=== PATIENT | female | born 1965 | race African-American/Black ===

== ENCOUNTER 2024-04-04 10:24 | Emergency (ER) | payer SELFPAY ==
[2024-04-04 10:26] VITALS: BP 181/121; PULSE 113; RESP 24; TEMP 36.7; O2SAT 99
--- NOTE | 2024-04-04 10:37 | ED.GENADUL_ITS ---
Discharge Plan Disposition Patient Disposition: Home Condition: Stable Discharge Details Clinical Impression: Cervical radiculopathy Primary Care Provider: [facility]Local ED Provider: Gibran Lindsay Home Meds and New Rx's Prescriptions: New ketorolac 10 mg tablet 10 mg PO QID PRN (Reason: pain) 5 Days Qty: 20 0RF Rx Instructions: maximum total duration of 5 days from all oral, intranasal, or parenteral formulations cyclobenzaprine 10 mg tablet 10 mg PO TID PRN (Reason: neck spasm) Qty: 30 0RF lidocaine [Lidoderm] 5 % adhesive patch,medicated 1 patch topical DAILY Qty: 15 0RF Rx Instructions: leave on most painful area for up to 12 hrs prednisone 20 mg tablet 40 mg PO DAILY 6 Days Qty: 12 0RF Discharge Instructions Instructions: Cervical Radiculopathy (ED) HPI General Date/Time Provider Initiated Documentation: 04/04/24 10:36 . HPI Narrative: 58 year-old female presents to ED today by POV/ambulating with her friend with a chief complaint of decreased strength and ROM in R arm, diminished sensation, R lateral neck pain with onset for approximately 3 months. Quality described as soreness to shoulder/lateral neck, tingling and intermittent numbness to R arm, no radiation to visual changes, pain out of proportion, L UE symptoms, lower extremity symptoms, endorses difficulty raising her R arm past 40 degrees. Severity is described as 6-7/10. Palliating factors include nothing specific. Provoking factors include nothing specific. Patient not anticoagulated. Related Data Home Medications Medication Instructions Recorded Confirmed cyclobenzaprine 10 mg tablet 10 mg PO TID PRN neck spasm #30 04/04/24 tabs ketorolac 10 mg tablet 10 mg PO QID PRN pain 5 days #20 04/04/24 tabs lidocaine 5 % topical patch 1 patch topical DAILY #15 ea 04/04/24 (Lidoderm) prednisone 20 mg tablet 40 mg (2 x 20 mg) PO DAILY 04/04/24 cervical radiculopathy 6 days #12 tabs Previous Rx's Medication Instructions Recorded cyclobenzaprine 10 mg tablet 10 mg PO TID PRN neck spasm #30 04/04/24 tabs ketorolac 10 mg tablet 10 mg PO QID PRN pain 5 days #20 04/04/24 tabs lidocaine 5 % topical patch 1 patch topical DAILY #15 ea 04/04/24 (Lidoderm) prednisone 20 mg tablet 40 mg (2 x 20 mg) PO DAILY 04/04/24 cervical radiculopathy 6 days #12 tabs Allergies Allergy/AdvReac Type Severity Reaction Status Date / Time No Known Allergies Allergy Unverified 04/04/24 10:31 General Stated Complaint: Orthopedic MIGUEL: 4 Review of Systems All systems reviewed & are unremarkable except as noted in HPI and below Exam Narrative Exam Narrative: GENERAL APPEARANCE: Well-nourished, non-toxic, awake and alert, atraumatic, no acute distress. SKIN: Warm, normal for ethincity, dry, intact, without rashes/lesions/ulcerations. HEAD: Normocephalic, atraumatic, normal hair distribution for gender/age. EYES: Normal conjunctiva, no exudates on lids/lashes. ENT: Nares patent, no circumoral cyanosis, no facial swelling NECK: Supple, trachea midline, painless cervical ROM. LUNGS/CHEST: Non-labored respirations, normal A/P diameter, symmetrical expansion, no chest wall deformity HEART (CV/PV): Regular rate, R radial pulse 2+, no peripheral edema, no JVD. ABDOMEN: Soft, non-distended, no guarding. MSK: Normal ROM, no swelling/deformity to bilateral UEs or LEs, moving all extremities without weakness, no cyanosis, spine midline without tenderness, normal curvature. R UE: Limited range of motion to the entire right upper extremity, is able to perform very limited elbow flexion and extension, wrist flexion and extension is less affected, right radial pulse 2+, sensation intact in all diminished to sharp dull, there is no positive Tinel's at the carpal tunnel or elbow, there is discomfort with palpation of the radial groove, the right trapezius muscle is palpably tense and there is tenderness to palpation the right lateral neck paraspinal, no pain with passive ROM. NEURO: Mental Status AAOx4 - alert to person, place, time, events No facial droop, no forehead involvement. Motor: No focal weakness - strength 5/5 in bilateral UEs and LEs, proximal and distal, symmetric. Sensory: sensation intact to light touch globally. Gait normal: patient ambulated without ataxia into ED room. PSYCH: euthymic, cooperative, pleasant, appropriate speech Course Vital Signs Vital signs: Vital Signs Temperature 36.7 C 04/04/24 10: Pulse 113 H 04/04/24 10:26 Respiratory Rate 04/04/24 10:26 Blood Pressure 181/121 H 04/04/24 10:26 Pulse Oximetry 99 04/04/24 10:26 Temperature 36.7 C 04/04/24 10:26 Pulse 113 H 04/04/24 10:26 Respiratory Rate 04/04/24 10:26 Blood Pressure 181/121 H 04/04/24 10:26 Blood Pressure Position Sitting 04/04/24 10:26 Pulse Oximetry 99 04/04/24 10:26 Oxygen Delivery Method Room Air 04/04/24 10: Oxygen Flow Rate 0 04/04/24 10: Pain Level 04/04/24 10:26 Medical Decision Making This dictation utilizes [id number] dictation software and may contain unedited grammatical errors. 58 y/o F presents to ED today with a chief complaint of right lateral neck and arm pain, diminished range of motion sensation to the entire right arm, no pain with passive range of motion, denies complete numbness onset over the past 3 months, denies lower extremity symptoms, denies any neurologic changes. Patients' medical history: denies CAD, denies t2DM. Family and social history: noncontributory. Pertinent exam findings / vital signs include R UE: Limited range of motion to the entire right upper extremity, is able to perform very limited elbow flexion and extension, wrist flexion and extension is less affected, right radial pulse 2+, sensation intact in all diminished to sharp dull, there is no positive Tinel's at the carpal tunnel or elbow, there is discomfort with palpation of the radial groove, the right trapezius muscle is palpably tense and there is tenderness to palpation the right lateral neck paraspinal, no pain with passive ROM.. Differential / pathologies of concern include myelopathy, cervical radiculopathy, muscle spasm, not CVA. Diagnostic studies of: -MRI C-Spine wo Contrast. Interventions of: -APAP, Toradol, Lidoderm, Cyclobenzaprine, Prednisone PO. ED Course/Assessment/Plan: 58-year-old female presents with myelopathy and cervical radiculopathy of the right upper extremity with lateral right neck pain. Due to the muscle weakness I did perform MRI scan, treated for cervical radiculopathy here in the department and sent prescriptions for all these medicines to her [facility] in [place]. Patient was in MRI scanner at time of signout, may need referral to neurosurgical practice or orthospine. With emergent findings may need transfer to [facility] if any critical stenosis or cord compression is visualized. Patient signed out to oncoming provider Caroline Byrne NP with MRI pending. Findings not consistent with complete paralysis or NV compromise of the R UE, not consistent with vertebral trauma. Disposition of Cervical Radiculopathy. Patient verbalized understanding of the plan and return to ED criteria and engaged in shared decision making. Medical Records Medical records reviewed: Yes I reviewed the patient's medical records. Imaging Data Radiologic Study: Attestation: I personally reviewed and interpreted this imaging study as follows: Imaging: MRI My impression: Pending at time of sign-out Quality:SDOH Health Related Social Needs: No Data to Display PFSH All Active Problems (Updated 04/04/24 @ 15:00 by VARSHA Alexander) Cervical radiculopathy (Acute) Social History Smoking/Tobacco Use Status: Current every day Tobacco Type: cigarettes Smoking risk assessment performed?: Yes Alcohol Intake: current Alcohol Intake frequency: 0-2 drinks per day Drug use: Never Substance use type: does not use Sign Out Sign Out Data: Sign Out Comment: Pending MRI read for R UE myelopathy Has meds if no emergent cord compression or neurosurgical findings. Just needs simple discharge with outpatient recommendations. Last updated by Gibran Lindsay PA at 04/04/24 15:35
--- NOTE | 2024-04-04 10:42 | DI.MRI_ITS ---
Exam(s) MR CERVICAL SPINE WO EXAM: MR CERVICAL SPINE WO CLINICAL HISTORY: myelopathy R arm TECHNIQUE: Multiplanar multisequence MRI of the cervical spine was performed without intravenous con trast. COMPARISON: No exams were available for comparison FINDINGS: Exam is limited by motion. BONES: Vertebral body heights are maintained. Alignment is normal. Bone marrow signal intensity is wi thin normal limits. There are prominent facet degenerative changes throughout. [id number] lexus ral foraminal narrowing is seen from C 2- 3 through C5-6 bilaterally. CERVICAL CORD: Craniovertebral junction is unremarkable. The cervical cord is normal size and signal intensity. SOFT TISSUES: Unremarkable. Severe degenerative changes around C1-2. C2-3: No disc herniation or bulge is identified. No significant central canal stenosis. C3-4: No disc herniation or bulge is identified. No significant central canal stenosis. C4-5: No disc herniation or bulge is identified. No significant central canal stenosis. C5-6: Moderate loss of disc height. Concentric disc osteophytes. Mild narrowing of the AP dimension of the central canal. No disc herniation or bulge is identified. C6-7: Mild disc bulging. No significant central canal stenosis or neural foraminal narrowing. C7-T1: No disc herniation or bulge is identified. No evidence of neural foraminal narrowing. No signi ficant central canal stenosis. IMPRESSION: Exam mildly limited by motion. Bilateral neural foraminal narrowing secondary to combination of degenerative disc changes and facet degenerative changes. No significant central canal stenosis. No focal disc herniation. DATA REPOSITORY:
[2024-04-04] MEDS: predniSONE 20 MG TAB 40 MG PO (10:52)
[2024-04-04] MEDS: Lidocaine 5% Patch 1 PATCH TP (10:52)
[2024-04-04] MEDS: Acetaminophen 500 MG TAB 1000 MG PO (10:52)
[2024-04-04] MEDS: Ketorolac 10 MG TAB PO (10:52)
[2024-04-04] MEDS: Cyclobenzaprine 10 MG TAB PO (10:52)
--- NOTE | 2024-04-04 15:47 | ED.PROG_ITS ---
Date of service: 04/04/24 Time of Service: 15:47 Medical Decision Making Care assumed from provider (VARSHA Casas) Please see their initial HPI, PE, and documentation. Discussed patient details and case and pending workup and disposition. Patient is hemodynamically stable, and alert and oriented. At the time of signout awaiting MRI result. MRI shows noted below: Exam mildly limited by motion. Bilateral neural foraminal narrowing secondary to combination of degenerative disc changes and facet degenerative changes. No significant central canal stenosis. No focal disc herniation At this time it is safe for patient to be discharged to home with prescriptions. Will refer to PCP for further care. Discussed MRI results. Given a physical therapy referral. This text was generated using [employer]ax[employer] system, please disregard any oddities of phrase or misspellings. Medical Records Medical records reviewed: Yes I reviewed the patient's medical records. Imaging Data Radiologic Study: Imaging: MRI Radiologist's impression: Exam(s) MR CERVICAL SPINE WO EXAM: MR CERVICAL SPINE WO CLINICAL HISTORY: myelopathy R arm TECHNIQUE: Multiplanar multisequence MRI of the cervical spine was performed without intravenous contrast. COMPARISON: No exams were available for comparison FINDINGS: Exam is limited by motion. BONES: Vertebral body heights are maintained. Alignment is normal. Bone marrow signal intensity is within normal limits. There are prominent facet degenerative changes throughout. Wngm-ji-lhuwclkq neural foraminal narrowing is seen from C 2- 3 through C5-6 bilaterally. CERVICAL CORD: Craniovertebral junction is unremarkable. The cervical cord is normal size and signal intensity. SOFT TISSUES: Unremarkable. Severe degenerative changes around C1-2. C2-3: No disc herniation or bulge is identified. No significant central canal stenosis. C3-4: No disc herniation or bulge is identified. No significant central canal stenosis. C4-5: No disc herniation or bulge is identified. No significant central canal stenosis. C5-6: Moderate loss of disc height. Concentric disc osteophytes. Mild narrowing of the AP dimension of the central canal. No disc herniation or bulge is identified. C6-7: Mild disc bulging. No significant central canal stenosis or neural fo raminal narrowing. C7-T1: No disc herniation or bulge is identified. No evidence of neural foraminal narrowing. No significant central canal stenosis. IMPRESSION: Exam mildly limited by motion. Bilateral neural foraminal narrowing secondary to combination of degenerative disc changes and facet degenerative changes. No significant central canal stenosis. No focal disc herniation. Quality:SDOH Health Related Social Needs: No Data to Display Sign Out Sign Out Data: Sign Out Comment: Pending MRI read for R UE myelopathy Has meds if no emergent cord compression or neurosurgical findings. Just needs simple discharge with outpatient recommendations. Last updated by Gibran Lindsay PA at 04/04/24 15:35 Discharge Plan Disposition Patient Disposition: Home Condition: Stable Discharge Details Clinical Impression: Cervical radiculopathy Primary Care Provider: Dolly,Local ED Provider: Caroline Byrne Home Meds and New Rx's Prescriptions: New ketorolac 10 mg tablet 10 mg PO QID PRN (Reason: pain) 5 Days Qty: 20 0RF Rx Instructions: maximum total duration of 5 days from all oral, intranasal, or parenteral formulations cyclobenzaprine 10 mg tablet 10 mg PO TID PRN (Reason: neck spasm) Qty: 30 0RF lidocaine [Lidoderm] 5 % adhesive patch,medicated 1 patch topical DAILY Qty: 15 0RF Rx Instructions: leave on most painful area for up to 12 hrs prednisone 20 mg tablet 40 mg PO DAILY 6 Days Qty: 12 0RF Discharge Instructions Instructions: Cervical Radiculopathy (ED) Additional Instructions: MRI shows some degenerative joint disease with some mild canal stenosis at C6. No significant Spinal cord compression. Please take the prescriptions prescribed and as directed. Alternate with ice and heat. Follow up with PCP in 3-5 days for further care and treatment. Consider video production specialist or physical therapy. Stand Alone Forms: Physical Therapy Referral Referrals: [facility] [Provider Group] Kuldeep Ruby DO [OSTEOPATHIC DOCTOR] -
--- NOTE | 2024-04-05 12:05 | NUR.NOTE ---
Accessed chart to determine what pharmacy the patient has documented in the chart. Nursing Note:
== END 2024-04-04 17:00 | disposition home or self-care (01) ==
PROVIDERS: Emergency Provider Registered Nurse Emergency
DX: M54.12 Radiculopathy, cervical region (principal); M47.12 Other spondylosis with myelopathy, cervical region
CPT/HCPCS: 00123; 99284; 72141; J7512

== ENCOUNTER 2024-05-06 07:16 | Emergency (ER) | payer SELFPAY ==
[2024-05-06] VITALS (64 sets, daily range): BP systolic 106–194; BP diastolic 78–138; PULSE 92–122; RESP 11–40; TEMP 36.5; O2SAT 85–100
--- NOTE | 2024-05-06 07:00 | RT.EKG_ITS ---
APPROVED REPORT Exam: Resting ECG Reason for Exam: Seizures Patient Location: E HR:108 bpm ECG Measurements Heart Rate 108 AXIS SC 157 P 45 QRSd 70 QRS 39 QT 373 T 70 QTc 502 Conclusion Sinus tachycardia...rate> 99 Left atrial enlargement...P, P'>60mS, <-0.15mV V1 Extensive anterior infarct, acute...ST >0.20mV, V1-V6 ST elevation, consider inferior injury...ST >0.08mV, II III aVF baseline artifact, concern for st segment elevation anterior lateral leads
[2024-05-06] MEDS: LORazepam 2 MG/ML VIAL ×2 (07:14→07:26)
--- NOTE | 2024-05-06 07:15 | DI.CT_ITS ---
Exam(s) CT BRAIN NECK CTA EXAM: CT BRAIN NECK CTA CLINICAL HISTORY: stroke, left bianchi gaze. TECHNIQUE: Imaging Protocol: Axial CT angiography was performed with multi-slice acquisition and mu lti-planar and/or 3D reconstructions. CONTRAST MATERIAL: Intravenous: Omnipaque 350. contrast volume:85 mL COMPARISON: MR MR CERVICAL SPINE WO from 04/04/[address] HEAD - STROKE PROTOCOL from 05/06/2024 CR XR PORTABLE CHEST AP from 05/06/2024 FINDINGS: CT Head W/O and W: Ventricles and Extra axial spaces: Normal in size and morphology for the patient's age. Hemorrhage: None. Cerebral parenchyma: There is a subtle area of decreased attenuation involving the left temporal lobe and left parietal lobe. There is subtle effacement of the sulci in the left temporal lobe. The fin dings are suspicious for a left MCA distribution infarct. Midline shift: None. Brainstem/Cerebellum: Normal. Calvarium: Normal. Visualized Paranasal sinuses/Mastoids: Clear. Soft Tissues: Unremarkable. Enhancement: Unremarkable. CTA Neck W: Common Carotid: Right: No dissection, occlusion or significant stenosis. Left: No dissection, occlusion or significant stenosis. External Carotid: Right: No occlusion or significant stenosis. Left: No occlusion or significant stenosis. Internal Carotid: Right: No dissection, occlusion or significant stenosis. Left: There is marked atherosclerosis at the proximal left internal carotid artery with near complet e occlusion. Vertebral Artery: Right: No dissection, occlusion or significant stenosis. Left: No dissection, occlusion or significant stenosis. Lung Apices: There is consolidation involving the left upper lobe and lingula. Dependent infiltrates are seen in the lower lobes bilaterally. There is both an endotracheal and a enteric tube in place. Bones: Within normal limits for the patient's age. Soft Tissues: Normal. Thyroid gland: Multinodular thyroid gland is present. The nodules are less than 1 cm in size. No foll ow-up is recommended. CTA Brain W: Internal Carotid Arteries: The CT angiography of the head there is occlusion of the cavernous portion of the left internal carotid artery and the M1 and M2 branches of the left middle cerebral artery. T he anterior cerebral artery is not visualized on the left. On the 2 minutes delayed images, there is some flow seen in a portion of the cavernous internal carotid artery which may be via the anterior co mmunicating artery. Anterior Cerebral Arteries: Right: No aneurysm, occlusion or significant stenosis. Left: There is occlusion of the left anterior cerebral artery on the angiography of the head. On the 2 minutes delayed images, there is some reconstitution of the left A2 segment likely via the anterio r communicating artery. Middle Cerebral Arteries: Right: No aneurysm, occlusion or significant stenosis. Left: Occlusion of the left MCA from the M1 on word is noted on the CT angiography of the head. Posterior Cerebral Arteries: Right: No aneurysm, occlusion or significant stenosis. Left: No aneurysm, occlusion or significant stenosis. Vertebral Arteries: Right: No aneurysm, occlusion or significant stenosis. Left: No aneurysm, occlusion or significant stenosis. Basilar Artery: No aneurysm, occlusion or significant stenosis. IMPRESSION: 1. 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 The left anterior cerebral artery and the cavernous portion of the left internal carotid artery do not fill on the angiography examination. There is contrast seen in the left A2 segment which may b e secondary to filling from the right anterior cerebral artery via the anterior communicating artery. There is also filling of a portion of the cavernous internal carotid artery which may also be second alfredo from the contralateral blood supply. 2. There is a large area of decreased attenuation involving the left MCA distribution consistent with an acute infarct. No intracranial hemorrhage is seen. 3. Thrombus is seen at the origin of the left internal carotid artery with near complete occlusion pr esent. 4. Dense consolidation involving the left upper lobe and lingula. This may represent atelectasis or p neumonia. Please correlate clinically. Dependent ground-glass opacities in the lungs suspicious for p neumonia. 5. Findings were discussed with Dr. Zhang on 05/06/2024. RADIATION DOSE DELIVERED: 2,794.73mGy.cm Total DLP DATA REPOSITORY: All CT scans at this facility are submitted to the National Radiology Data Registry (NRDR) Dose Index Registry (DIR) with the [employer] (A[employer]). RADIATION OPTIMIZATION: All CT scans at this facility use at least one of these dose optimization te chniques: automated exposure control; mA and/or kV adjustment per patient size (includes targeted exa ms where dose is matched to clinical indication); or iterative reconstruction.
--- NOTE | 2024-05-06 07:15 | RT.EKG_ITS ---
APPROVED REPORT Exam: Resting ECG Reason for Exam: stroke Patient Location: E HR:105 bpm ECG Measurements Heart Rate 105 AXIS MS 145 P 44 QRSd 64 QRS 13 QT 331 T 68 QTc 438 Conclusion Sinus tachycardia...rate> 99 Ventricular premature complex...V complex w/ short R-R interval Probable left atrial enlargement...P >50mS, <-0.10mV V1 Probable anterolateral infarct, acute...ST >0.15mV, V2-V6,I,aVL sinus rhtyhm, normal axis, normal intervals, st segment elevations V1-V5
[2024-05-06] MEDS: levETIRAcetam 500 MG/5 ML VIAL ×2 (07:21)
[2024-05-06] MEDS: Succinylcholine 200 MG/10 ML VIAL 100 MG IVP (07:27)
[2024-05-06] MEDS: Etomidate 20 MG/10 ML VIAL IVP (07:27)
--- NOTE | 2024-05-06 07:30 | DI.RAD_ITS ---
Exam(s) XR PORTABLE CHEST AP EXAM: XR PORTABLE CHEST AP CLINICAL HISTORY: post intubation TECHNIQUE: 2D digital imaging was performed of the chest. One image was obtained. An AP view was ob tained. COMPARISON: No exams were available for comparison FINDINGS: MEDIASTINUM: Normal. HEART: Normal. PULMONARY VASCULATURE: Normal. LUNGS: There is an infiltrate seen in the left lung base. The right lung appears clear. PLEURAL SPACE: No pleural effusion or pneumothorax. BONE:Within normal limits for the patient's age. OTHER FINDINGS:The tip of the endotracheal tube is 2.0 cm above the liliana. The tip of the enteric t ube is in the stomach in good position. IMPRESSION: 1. The tip of the ET tube is 2 cm above the liliana. 2. The tip of the enteric tube is in the stomach in good position. 3. Left basilar infiltrate. DATA REPOSITORY: RADIATION DOSE DELIVERED:
[2024-05-06] MEDS: PROPOFOL 1,000 MG/100 ML BTL 6 MG IVPB (07:34)
[2024-05-06 07:59] LABS: Abs Immature Grans 0.14 10^3/uL (0.0-0.06); Absolute Basophil Count 0.03 10^3/uL (0.0-0.2); Absolute Lymphocyte Count 1.03 10^3/uL (1.2-3.4); Basophils % 0.2 %; Eosinophils % 0.1 %; HGB 13.6 g/dL (11.2-15.7); Immature Grans % 0.8 %; MCH 25.6 pg (27.0-33.0); MCHC 31.6 % (32.0-36.0); MCV 81 fL (80-95); MPV 9.5 fL (8.0-11.0); Monocytes % 8.4 %; Neutrophils % 84.5 %; RBC 5.32 10^6/uL (3.93-5.22); RDW 14.3 % (11.7-14.6); RDW-SD 41.2 fL
[2024-05-06 08:00] LABS: Absolute Eosinophil Count 0.02 10^3/uL (0.0-0.7); Absolute Monocyte Count 1.44 10^3/uL (0.1-0.8); Absolute Neutrophil Count 14.45 10^3/uL (1.2-6.7)
[2024-05-06 08:13] LABS: Diff Comment PLT Morph Reviewed; Platelet Count 740 10^3/uL (130-400)
[2024-05-06 08:14] LABS: ALT 23 U/L (14-59); AST 169 U/L (15-37); Albumin 2.4 g/dL (3.4-5.0); Alkaline Phosphatase 105 U/L (46-116); Anion Gap 6.9 mmol/L (3-11); BUN 8 mg/dL (7-18); Bilirubin, Total 0.5 mg/dL (0.2-1.0); CO2 34.1 mmol/L (21.0-32.0); CREATININE 0.6 mg/dL (0.55-1.02); Chloride 98 mmol/L (98-107); Estimated GFR 102.69 (mL/min/1.73m2); Glucose 163 mg/dL (74-106); Magnesium 1.6 mg/dL (1.8-2.4); RBC Morphology Normal; Sodium 139 mmol/L (136-145); Total Protein 7.9 g/dL (6.4-8.2)
[2024-05-06 08:21] LABS: Potassium 2.9 mmol/L (3.5-5.1); Troponin I 23402 ng/L (< or =60)
--- NOTE | 2024-05-06 08:28 | ED.GENADUL_ITS ---
Discharge Plan Disposition Patient Disposition: Transfer-Acute Inpatient Care Specific Acute Inpt Facility: [facility] Condition: Serious Discharge Details Chief Complaint: CVA/TIA Clinical Impression: Ischemic stroke, Elevated troponin Primary Care Provider: Unknown,Unknown ED Provider: Emory Zhang Home Meds and New Rx's Prescriptions: No Action cyclobenzaprine 10 mg tablet 10 mg PO TID PRN (Reason: neck spasm) Qty: 30 0RF lidocaine [Lidoderm] 5 % adhesive patch,medicated 1 patch topical DAILY Qty: 15 0RF Rx Instructions: leave on most painful area for up to 12 hrs HPI General Date/Time Provider Initiated Documentation: 05/06/24 07:27 . HPI Narrative: 58-year-old female found altered lying on the couch by her son this morning, last seen normal approximately 1 to 2 AM. No past medical history per family. Blood sugar in the field 200 per EMS. Related Data Home Medications Medication Instructions Recorded Confirmed cyclobenzaprine 10 mg tablet 10 mg PO TID PRN neck spasm #30 04/04/24 05/06/24 tabs lidocaine 5 % topical patch 1 patch topical DAILY #15 ea 04/04/24 05/06/24 (Lidoderm) Previous Rx's Medication Instructions Recorded cyclobenzaprine 10 mg tablet 10 mg PO TID PRN neck spasm #30 04/04/24 tabs lidocaine 5 % topical patch 1 patch topical DAILY #15 ea 04/04/24 (Lidoderm) Allergies Allergy/AdvReac Type Severity Reaction Status Date / Time No Known Allergies Allergy Unverified 05/06/24 08:46 General Stated Complaint: AMS/LOC MIGUEL: 1 Review of Systems Narrative: Review of Systems Constitutional: negative Eyes: negative ENT: negative Cardiovascular: negative Respiratory: negative Gastrointestinal: negative : negative Musculoskeletal: negative Skin: negative Neurologic: MS Psych: negative Exam Narrative Exam Narrative: Physical Examination General: Leftward gaze, holding legs in extension HEENT: normocephalic, atraumatic; PERRL, leftward gaze, slight drying of oral mucosa Neck: supple, trachea midline; full ROM Chest: normal to inspection Respiratory: Sonorous breath sounds, lungs clear bilaterally Cardiac: Tachycardia, regular rhythm, S1S2 intact, no murmurs rubs or gallops GI: abdomen soft, non-tender, non-distended; no palpable mass or hepatosplenomegaly Skin: no lesions, rashes or trauma appreciated Neuro: No verbal response not opening eyes spontaneously, some flexion of the left upper extremity holding legs in extension, leftward gaze Extremities: No peripheral edema Course Vital Signs Vital signs: Vital Signs Pulse Oximetry 90 L 05/06/24 07:11 Pulse 99 H 05/06/24 07:36 Pulse 101 H 05/06/24 08:20 Respiratory Rate 24 05/06/24 08:20 Blood Pressure 125/82 05/06/24 07:36 Blood Pressure Mean 96 05/06/24 07:36 Pulse Oximetry 100 05/06/24 07:37 Respiratory End-tidal CO2 39 05/06/24 08:20 Lab/Test Results Lab/Test Results: Laboratory Tests Range/Units 05/06/24 07:16 WBC (4.4-10.8) 10^3/uL 17.10 H RBC (3.93-5.22) 10^6/uL 5.32 H Hgb (11.2-15.7) g/dL 13.6 Hct (36.0-46.0) % 43.0 MCV (80-95) fL 81 MCH (27.0-33.0) pg 25.6 L MCHC (32.0-36.0) % 31.6 L RDW (11.7-14.6) % 14.3 Plt Count (130-400) 10^3/uL 740 H MPV (8.0-11.0) fL 9.5 Immature Gran % % 0.8 Neutrophils % % 84.5 Lymphocytes % % 6.0 Monocytes % % 8.4 Eosinophils % % 0.1 Basophils % % 0.2 Nucleated RBC % (0.0-0.3) % 0.0 Absolute Neutrophils (1.2-6.7) 10^3/uL 14.45 H Absolute Lymphocytes (1.2-3.4) 10^3/uL 1.03 L Absolute Monocytes (0.1-0.8) 10^3/uL 1.44 H Absolute Eosinophils (0.0-0.7) 10^3/uL 0.02 Absolute Basophils (0.0-0.2) 10^3/uL 0.03 RBC Morphology Normal Sodium (136-145) mmol/L 139 Potassium (3.5-5.1) mmol/L 2.9 L* Chloride (98-107) mmol/L 98 Carbon Dioxide (21.0-32.0) mmol/L 34.1 H Anion Gap (3-11) mmol/L 6.9 BUN (7-18) mg/dL 8 Creatinine (0.55-1.02) mg/dL 0.6 Est GFR (CKD-EPI 2020) (mL/min/1.73m2) 102.69 Glucose (74-106) mg/dL 163 H Calcium (8.5-10.1) mg/dL 9.0 Magnesium (1.8-2.4) mg/dL 1.6 L Total Bilirubin (0.2-1.0) mg/dL 0.5 AST (15-37) U/L 169 H ALT (14-59) U/L 23 Alkaline Phosphatase (46-116) U/L 105 Troponin I (< or =60) ng/L 01506 H* Total Protein (6.4-8.2) g/dL 7.9 Albumin (3.4-5.0) g/dL 2.4 L Procedures Intubation Time out performed: Yes sedative: Etomidate Mg Given: 20 paralytic: Succinylcholine Mg Given: 100 Laryngoscope: Verena ET Tube Size: 7.5 ET Tube Uncuffed: No Tube Secured Depth (cm): 23 Tube Placement Confirmation: visualized tube passing through cords, equal breath sounds bilaterally and no breath sounds over epigastrum Patient Tolerated Procedure: well Intubation Complications: none Medical Decision Making 58-year-old female found unresponsive by her son, lying on the couch this morning, was seen at approximately 1 to 2 AM walking normally in the kitchen, unresponsive to EMS, fingerstick approximately 200 in the field, leftward gaze on arrival with some flexion of left upper extremity and holding legs extension, intermittent spontaneous movement of upper and lower extremities followed by recurrent extension and flexion along with sonorous breath sounds and grunting with leftward gaze concerning for recurrent seizure activity versus CVA versus intracranial hemorrhage lower suspicion for trauma intoxication or infection. Noted to be markedly hypertensive on arrival and tachycardic, patient was intubated for airway protection given GCS of 5, NIH stroke scale of 33, patient taken to CT for CTA head and neck, portable chest x-ray, basic labs troponin toxicologic labs urinalysis metabolic panel, PT PTT; no overt intracranial hemorrhage noted on CT Noncon however there appears to be an area of hypoperfusion left frontoparietal lobes consider large vessel occlusion. Patient found to have elevated troponin as well as EKG concerning for ST segment elevation NE. Currently on propofol for sedation, improved blood pressure, no further seizure- like activity noted. Will discuss case with critical care team at [facility] to consider neurointervention and/or interventional cardiology involvement. Family at bedside will have further goals of care discussion with son. 9: [address] Blum of interventional neurology who is excepted patient for transfer. Have also spoken to Dr. Cam of cardiology given ST segment elevation on EKG and troponin leak to over 23,000. We have spoke with the possibility that these EKG and laboratory findings might be the result of the intracranial process currently going on however they will pursue further cardiac evaluation upon arrival to [facility] with likely echocardiogram and possible catheterization pending primary neurointervention. Son consenting to transfer. Patient dickson hemodynamically stable and sedated on propofol drip. [facility] unable to fly at this time, attempting to arrange ground transportation with [employer] 9: 50 [employer] unable to transport as we need respiratory and critical care nurse to go with transport team, [facility] flight is available in 30 minutes to transport patient via air. Quality:SDOH Health Related Social Needs: No Data to Display Critical Care Time Critical Care Time Critical Care Time: Yes Total Critical Care Time: 30 Attestation: Critical care time spent at the bedside assessing patient interpreting labs dripping imaging, intubating patient starting patient on propofol drip, according specialty care with neurointerventional team as well as cardiology for patient with acute stroke altered mental status requiring ICU level care and transfer to tertiary care center [facility] All Active Problems (Updated 05/06/24 @ 09:51 by Emory Zhang MD) Elevated troponin (Acute) Ischemic stroke (Acute) Social History Smoking/Tobacco Use Status: Current every day Tobacco Type: cigarettes Smoking risk assessment performed?: Yes Alcohol Intake: current Alcohol Intake frequency: 0-2 drinks per day Drug use: Never Substance use type: does not use Housing: house
[2024-05-06 08:37] LABS: BE (Venous) 9 mmol/L (-2-3); HCO3 (Venous) 32 mmol/L (23-28); O2 Sat (Venous) 97 %; TCO2 (Venous) 29 mmol/L (24-29); pCO2 (Venous) 43 mmHg (41-51); pH (Venous) 7.48 (7.31-7.41); pO2 (Venous) 95 mmHg
[2024-05-06 08:39] LABS: BE 10 mmol/L (-2-3); HCO3 33 mmol/L (22-26); pCO2 45 mmHg (35-45); pH 7.48 (7.35-7.45); pO2 144 mmHg (80-105); sO2 99 % (95-98); tCO2 30 mmol/L (23-27)
[2024-05-06] MEDS: Omnipaque 350 MG/ML 500 ML BTL-Imaging package 85 ML IJ (08:39)
[2024-05-06 08:42] LABS: FIO2 70 %; Site Right Radial
[2024-05-06 08:49] LABS: INR 1.2 (0.9-1.1); Prothrombin Time 11.6 sec (9.1-11.1)
[2024-05-06 09:03] LABS: PTT Activated 27.4 sec (23.6-32.8)
[2024-05-06 09:12] LABS: Bilirubin Negative (Negative); Blood Trace-intact (Negative); Clarity Cloudy (Clear); Glucose Negative (Negative); Ketones Negative (Negative); Leukocyte Esterase Moderate (Negative); Nitrite Negative (Negative); Specific Gravity 1.015 (1.005-1.025)
[2024-05-06] MEDS: POTASSIUM CHLORIDE 10 MEQ/100 ML BAG 100 MEQ IVINF ×2 (09:20→11:23)
[2024-05-06 09:23] LABS: Bacteria Many HPF (Negative); C & S Indicated? Yes; Casts Negative LPF (Negative); Crystals Negative HPF (Negative); Epithelial Cells Few HPF (Negative); Mucus Negative (Negative); RBC 0-2 HPF (0-2)
[2024-05-06 09:29] LABS: *AMPHETAMINES SCREEN URINE Negative (Negative); *BARBITURATES SCREEN URINE Negative (Negative); *BENZODIAZEPINES SCREEN URINE Negative (Negative); Cannabinoids THC Negative (Negative); Cocaine Screen,Urine Negative (Negative); METHADONE URINE SCREEN Negative (Negative); OPIATES URINE SCREEN Negative (Negative)
[2024-05-06 09:30] LABS: Tricyclic Antidepressants Negative (Negative)
--- NOTE | 2024-05-06 09:30 | RT.EKG_ITS ---
APPROVED REPORT Exam: Resting ECG Reason for Exam: Recheck Patient Location: E HR:108 bpm ECG Measurements Heart Rate 108 AXIS VA 141 P 62 QRSd 68 QRS 17 QT 367 T 55 QTc 482 Conclusion Sinus tachycardia...rate> 99 Atrial premature complexes...SV complexes w/ short R-R intvls Probable left atrial enlargement...P >50mS, <-0.10mV V1 Extensive anterior infarct, acute...ST >0.20mV, V1-V6 ST elevation, consider inferior injury...ST >0.08mV, II III aVF sinus tachycardia, normal axis, nomral intervals, ST segment elvation V1-V4
[2024-05-06] MEDS: POTASSIUM CHLORIDE 10 MEQ/100 ML BAG 100 MEQ (09:52)
[2024-05-06 09:58] LABS: Troponin I 17005 ng/L (< or =60)
[2024-05-06] MEDS: PROPOFOL 1,000 MG/100 ML BTL 1 MG (11:24)
== END 2024-05-06 11:22 | disposition short-term general hospital (02) ==
PROVIDERS: Student in an Organized Health Care Education/Training Program; Emergency Provider Emergency Medicine
DX: I63.9 Cerebral infarction, unspecified (principal); R79.89 Other specified abnormal findings of blood chemistry; R94.31 Abnormal electrocardiogram [ECG] [EKG]; R40.2432 Glasgow coma scale score 3-8, at arrival to emergency department; R29.733 NIHSS score 33; F17.210 Nicotine dependence, cigarettes, uncomplicated
CPT/HCPCS: 31500; 70496; 70498; 80053; 80307; 82805; 82962; 87077; 93005; 96365; 96366; 99291; 36600; 71045; 81003; 81015; 83735; 84484; 85025; 85610; 85730; 87086; 87186; 93010; J0330; J1953; J2060; J2704; J3480